=== PATIENT | female | born 1945 | race Caucasian/White ===

== ENCOUNTER → 2017-02-12 | Outpatient (CLI) | payer MEDICARE, BC ==
--- NOTE | 2017-02-12 07:58 | US ---
EXAMINATION TYPE: US abdomen complete DATE OF EXAM: 02/12/2017 7:40 AM COMPARISON: NONE CLINICAL HISTORY: K21.9 Gerd wo esophagitis, R10.11 RUQ Pain. post rich, general abd pain EXAM MEASUREMENTS: Liver Length: 20.3 cm Gallbladder Wall: surgically absent CBD: 0.6 cm Spleen: 10.8 cm Right Kidney: 11.0 x 4.9 x 5.1 cm Left Kidney: 10.4 x 5.6 x 4.9 cm Pancreas: tail gassed out, 9mm panc cyst at the upper anterior body Liver: hepatomegaly Gallbladder: Surgically absent CBD: wnl Spleen: wnl Right Kidney: wnl Left Kidney: wnl Upper IVC: wnl Abd Aorta: wnl as seen, some limitations due to overlying bowel gas There is a 9 mm cystic mass involving the body of the pancreas. The liver is enlarged measuring 20.3 cm. The gallbladder has been removed. IMPRESSION: 1. HEPATOMEGALY. 2. CYSTIC LESION WITHIN THE BODY OF THE PANCREAS WARRANTS FURTHER INVESTIGATION. A HIGH-RESOLUTION CT SCAN THROUGH THE PANCREAS WOULD BE SUGGESTED.
== END | disposition home or self-care (01) ==
LOC: RADUSWWP 07:19
PROVIDERS: ATTEND Family Medicine
DX: R16.1 Splenomegaly, not elsewhere classified (principal); K86.89 Other specified diseases of pancreas; K21.9 Gastro-esophageal reflux disease without esophagitis
CPT/HCPCS: 76700

== ENCOUNTER → 2017-02-28 | Outpatient (CLI) | payer MEDICARE, BC ==
[2017-02-28 16:56] LABS: Blood Urea Nitrogen 18 mg/dL (7-17); Non-African American GFR(MDRD) >60 (>60 ml/min/1.73 sqM)
--- NOTE | 2017-03-01 17:12 | CT ---
EXAMINATION TYPE: CT abdomen w con DATE OF EXAM: 02/28/2017 5:21 PM COMPARISON: Ultrasound 02/12/2017 INDICATION: Mid to right upper quadrant pain. DLP: 958.30 mGycm, Automated exposure control for dose reduction was used. CONTRAST: 100 mL of Omnipaque 300. Study performed with Oral Contrast TECHNIQUE: Axial images were obtained from above the diaphragm to the pubic rami in the axial plane a t 5 mm thick sections. Reconstructed images are reviewed on the computer in the coronal plane. FINDINGS: Limited CT sections are obtained the lung bases. The lung bases are clear. CT ABDOMEN: Liver: Normal Spleen: Normal Pancreas: Appears mildly atrophic. There is a 1.3 cm hypodensity in the anterior tail of the pancreas . This measures 8 Hounsfield units and could be a pancreatic cyst. Cystadenoma or cystadenocarcinoma within the differential. Monitoring is recommended. There is a second hypodensity measuring 1.1 cm an d 3 Hounsfield units on the anterior body of the pancreas. Adrenal glands: The adrenal glands are normal. Gallbladder: Normal Kidneys: No masses are evident. No hydronephrosis is present. No cysts are present. Delayed images were obtained through the kidneys, which remain unremarkable. Aorta: Vascular calcification is within the aorta. Inferior vena cava: Normal. Loops of bowel within the abdomen are normal. Appendix: Normal as visualized. IMPRESSIONS: 1. Two hypodensities within the pancreas, the anterior body and anterior tail which appear cystic on the CT examination. These are better visualized on CT than on comparison ultrasound. Cyst, cystadeno ma, cystadenocarcinoma within the differential. Monitoring CT is recommended. Follow-up CT abdomen in 3 months, pancreas protocol with contrast.
== END | disposition home or self-care (01) ==
LOC: RADCTMAIN 16:14
PROVIDERS: ATTEND Family Medicine
DX: K86.89 Other specified diseases of pancreas (principal)
CPT/HCPCS: 82565; 84520; 74160; 36415; Q9967

== ENCOUNTER → 2017-07-16 | Outpatient (CLI) | payer MEDICARE, BC ==
--- NOTE | 2017-07-16 09:57 | XR ---
EXAMINATION TYPE: XR forearm LT DATE OF EXAM: 07/16/2017 COMPARISON: NONE HISTORY: Pain and swelling, fall last week TECHNIQUE: 2 view left forearm FINDINGS: No acute fractures are evident. Soft tissues appear normal. Joint spaces as visualized appe ar unremarkable. Note is made of some mild ulnar negative variance. IMPRESSION: 1. No acute or subacute osseous abnormality.
--- NOTE | 2017-07-16 09:58 | XR ---
EXAMINATION TYPE: XR hand complete LT DATE OF EXAM: 07/16/2017 COMPARISON: NONE HISTORY: Fall one week prior, swelling TECHNIQUE: Three-view left hand FINDINGS: There is mild joint space narrowing of the proximal interphalangeal joint spaces and distal interphalangeal joint spaces. No acute fractures evident. Soft tissues appear normal. IMPRESSION: 1. Mild degenerative joint changes. 2. No acute osseous abnormality.
== END | disposition home or self-care (01) ==
LOC: RADXRYALE 09:28
PROVIDERS: ATTEND Physician Assistant Medical
DX: M25.842 Other specified joint disorders, left hand (principal); M79.642 Pain in left hand; M79.632 Pain in left forearm; M25.532 Pain in left wrist

== ENCOUNTER → 2018-11-11 | Outpatient (CLI) | payer MEDICARE, BC ==
[2018-11-11 13:11] LABS: Blood Urea Nitrogen 16 mg/dL (7-17)
--- NOTE | 2018-11-12 06:51 | CT ---
EXAMINATION TYPE: CT abdomen w con DATE OF EXAM: 11/11/2018 COMPARISON: 02/28/2017 HISTORY: 73-year-old female abnormal findings of diagnostic imaging, cyst of pancreas TECHNIQUE: Contiguous axial scanning of the abdomen following administration of 100 ml Isovue 300 IV contrast. Delayed images through the kidneys and coronal/sagittal reconstructions performed. CT DLP: 1001.60 mGycm Automated exposure control for dose reduction was used. FINDINGS: Heart borderline enlarged without pericardial effusion. Some strandy areas of atelectasis and scarrin g noted in the lower lungs. No pleural effusion. Small hiatal hernia. The liver is enlarged measuring 22.4 cm craniocaudal. Possibly secondary to a prominent Brayan's lobe . No focal liver lesion or biliary ductal dilatation. Portal venous system is patent. Cholecystectomy clips. Adrenal glands, spleen within normal limits. There is delayed excretion of contrast from both kidneys . Correlate with patient's renal function. 2 cystic lesions within the pancreas, one along the anterior pancreatic body and one along the anteri or pancreatic tail measuring 9 mm and 1.2 cm, respectively are not significantly changed. These are e ssentially stable in size over the course of 1 year and 8 months. No mesenteric or retroperitoneal lymphadenopathy. No dilated small bowel, free fluid, or free air. Ti ny fatty umbilical hernia. Scattered mild stool burden and scattered colonic diverticulosis. No peric olonic inflammatory change within the visualized portions. The pelvis is not imaged. Bones: Degenerative changes mid to lower lumbar spine with grade 1 anterolisthesis at L4-L5 and bilat eral neuroforaminal narrowing at this level. IMPRESSION: 1. 2 CYSTIC LESIONS WITHIN THE PANCREAS MEASURE UP TO 1.2 CM AND ARE ESSENTIALLY STABLE FOR 1 YEAR AN D 8 MONTHS. BASED ON CONSENSUS GUIDELINES, A BENIGN ENTITY IS SUGGESTED AND NO FURTHER FOLLOW-UP WOUL D BE RECOMMENDED. 2. NO CONTRAST SEEN WITHIN THE RENAL COLLECTING SYSTEMS ON THE DELAYED KIDNEY IMAGES. UNABLE TO EXCLU DE DELAYED RENAL EXCRETION. CORRELATE WITH PATIENT'S RENAL FUNCTION TO EXCLUDE ELISA. 3. SMALL HIATAL HERNIA. THERE MAY BE UNDERLYING HEPATIC STEATOSIS. CLINICALLY CORRELATE. SCATTERED CO LONIC DIVERTICULOSIS.
== END | disposition home or self-care (01) ==
LOC: RADCTMAIN 12:29
PROVIDERS: ATTEND Family Medicine
DX: K86.2 Cyst of pancreas (principal); K44.9 Diaphragmatic hernia without obstruction or gangrene; K57.30 Diverticulosis of large intestine without perforation or abscess without bleeding; K58.0 Irritable bowel syndrome with diarrhea; K21.9 Gastro-esophageal reflux disease without esophagitis
CPT/HCPCS: 82565; 84520; 74160; 36415; Q9967

== ENCOUNTER → 2019-01-09 | Outpatient (CLI) | payer MEDICARE, BC ==
--- NOTE | 2019-01-09 10:28 | XR ---
EXAMINATION TYPE: XR chest 2V DATE OF EXAM: 01/09/2019 COMPARISON: 11/05/2016 HISTORY: Shortness of breath TECHNIQUE: Frontal and lateral views of the chest are obtained. FINDINGS: Scattered senescent parenchymal changes noted. Hyperinflation compatible with COPD. Increased density right medial lung base may reflect underlying pneumonia. Correlate clinically and c onsider progress studies. Heart size is stable. Mediastinal structures are stable and grossly unremarkable. No evidence for hilar prominence. Degenerative changes dorsal spine. IMPRESSION: 1. Increased density right medial lung base may reflect underlying pneumonia. Correlate clinically an d consider progress studies.
== END | disposition home or self-care (01) ==
LOC: RADXRYALE 09:40
PROVIDERS: ATTEND Family Medicine
DX: J98.4 Other disorders of lung (principal)
CPT/HCPCS: 71046

== ENCOUNTER → 2019-10-30 | Outpatient (CLI) | payer MEDICARE, BC ==
--- NOTE | 2019-10-30 12:25 | XR ---
EXAMINATION TYPE: XR chest 2V DATE OF EXAM: 10/30/2019 COMPARISON: Prior chest x-ray 01/09/2019 HISTORY: Bronchopneumonia, cough and dyspnea TECHNIQUE: Frontal and lateral views of the chest are obtained. FINDINGS: There are prominent lung volumes with relative flattening the hemidiaphragms noted on the l ateral exam. Eventration is noted on the frontal exam the right hemidiaphragm. Aorta is dense. Promin ence of pulmonary artery could be indicative of pulmonary artery hypertension. There is bronchial wal l thickening. There is no focal air space opacity, pleural effusion, or pneumothorax seen. The cardi ac silhouette size is within normal limits. The osseous structures are intact. IMPRESSION: Correlate for bronchitis, reactive airways disease, additional findings above
== END | disposition home or self-care (01) ==
LOC: RADXRYALE 10:01
PROVIDERS: ATTEND Family Medicine
DX: J98.4 Other disorders of lung (principal); Q79.1 Other congenital malformations of diaphragm
CPT/HCPCS: 71046

== ENCOUNTER → 2020-01-30 | Outpatient (CLI) | payer MEDICARE, BC ==
--- NOTE | 2020-01-30 10:26 | MR ---
EXAMINATION TYPE: MR brain and iac wo/w con DATE OF EXAM: 01/30/2020 COMPARISON: None HISTORY: Tinnitus TECHNIQUE: Multiplanar, multisequence images of the brain and brainstem is performed without and with IV contras t, utilizing 9 mL intravenous Gadavist . FINDINGS: Diffusion weighted images demonstrate no evidence of a recent infarct or other diffusion ab normality. There is no evidence of enhancing mass or mass effect. Mild generalized degenerative change seen with the numerous focal areas of abnormal signal scattered throughout the white matter in a nonspecific p attern but most typical remote microvascular ischemia. There is no evidence of cerebellopontine angle mass or acoustic schwannoma. Oropharynx and nasopharyn x symmetric. Changes of chronic sinusitis are noted. Mastoid air cells appear clear. Midline structures demonstrate normal morphology. The craniocervical junction appears within normal limits. Post contrast images demonstrate no abnormal enhancement. The dural venous sinuses appear pa tent. IMPRESSION: 1. Degenerative and nonspecific white matter changes most typical remote microvascular ischemia. 2. No evidence of acoustic schwannoma or cerebellopontine angle mass. 3. Changes of chronic sinusitis most marked involving the right maxillary sinus.
== END | disposition home or self-care (01) ==
LOC: RADMRIMAIN 08:56
PROVIDERS: ATTEND Otolaryngology
DX: G31.9 Degenerative disease of nervous system, unspecified (principal); R90.89 Other abnormal findings on diagnostic imaging of central nervous system; H93.3X1 Disorders of right acoustic nerve; H91.91 Unspecified hearing loss, right ear; H93.19 Tinnitus, unspecified ear
CPT/HCPCS: 70553; A9585

== ENCOUNTER → 2021-02-25 | Outpatient (CLI) | payer MEDICARE, BC ==
--- NOTE | 2021-02-25 11:03 | XR ---
EXAMINATION TYPE: XR cervical spine comp DATE OF EXAM: 02/25/2021 COMPARISON: None HISTORY: Cervicalgia TECHNIQUE: 5 view cervical spine FINDINGS: Odontoid is very limited due to overlying maxilla. Prevertebral space is normal. Disc space narrowing is present at C5-C6 C6-7. Posterior spinal lamellar line is intact. Mild foraminal narrowi ng at C6-7 on the left is present. C5-6 left foraminal narrowing is present. Remaining foramen are pa tent. Facet hypertrophy is noted. IMPRESSION: 1. Degenerative facet changes. 2. Degenerative disc changes C5-C6 C6-7. 3.There is some foraminal narrowing at C5-C6 and C6-7 on the left.
== END | disposition home or self-care (01) ==
LOC: RADXRYALE 10:37
PROVIDERS: ATTEND Family Medicine
DX: M47.812 Spondylosis without myelopathy or radiculopathy, cervical region (principal); M50.323 Other cervical disc degeneration at C6-C7 level; M99.71 Connective tissue and disc stenosis of intervertebral foramina of cervical region
CPT/HCPCS: 72050

== ENCOUNTER 2021-10-21 17:12 | Emergency (ER) | payer MEDICARE, BC ==
--- NOTE | 2021-10-21 22:05 | ED ---
General Adult HPI - General Chief complaint: Upper Respiratory Infection Stated complaint: Covid Positive Time Seen by Provider: 10/21/21 21:23 Source: patient, family, RN notes reviewed Mode of arrival: ambulatory Limitations: no limitations - History of Present Illness Initial comments: 75-year-old female presents to the emergency department for evaluation of shortness of breath with activity and cough. Patient states she tested positive for Covid today; symptoms began on Sunday. Patient states her PCP prescribed her an antibiotic because of her chest congestion and predisposition toward developing pneumonia. States her chest, back, and neck are sore and has generalized body aches. Patient states she has not had a fever, chills, chest p ain, abdominal pain, nausea, vomiting, diarrhea, hematuria, or dysuria. - Related Data Home Medications Medication Instructions Recorded Confirmed Calcium Carbonate/Vitamin D3 2 tab PO BID 11/05/16 10/21/21 [Calcium 500-Vit D3 15 Mcg (600 Iu)] Cholecalciferol [Vitamin D3 (25 25 mcg PO DAILY 11/05/16 10/21/21 Mcg = 1000 Iu)] L.acidoph,Paracasei, B.lactis 1 cap PO DAILY 11/05/16 10/21/21 [Probiotic] Montelukast [Singulair] 10 mg PO HS PRN 11/05/16 10/21/21 Cefuroxime Axetil [Ceftin] 500 mg PO BID 10/21/21 10/21/21 Citalopram Hydrobromide [CeleXA] 20 mg PO DAILY 10/21/21 10/21/21 Famotidine 20 mg PO DAILY PRN 10/21/21 10/21/21 Fexofenadine HCl [Marci Allergy] 180 mg PO DAILY PRN 10/21/21 10/21/21 Losartan [Cozaar] 25 mg PO DAILY 10/21/21 10/21/21 Meloxicam [Mobic] 7.5 mg PO DAILY 10/21/21 10/21/21 [place]-3 Fatty Acids/Fish Oil [Fish 1 cap PO BID 10/21/21 10/21/21 Oil 1,000 mg Softgel] Thiamine [Vitamin B-1] 50 mg PO MOWEFR 10/21/21 10/21/21 Allergies Allergy/AdvReac Type Severity Reaction Status Date / Time amoxicillin [From Augmentin] Allergy Rash/Hives Verified 10/21/21 23:07 clarithromycin Allergy Rash/Hives Verified 10/21/21 23:07 clavulanic acid Allergy Rash/Hives Verified 10/21/21 23:07 [From Augmentin] prednisone Allergy Unknown Verified 10/21/21 23:07 Sulfa (Sulfonamide Allergy Unknown Verified 10/21/21 23:07 Antibiotics) Review of Systems ROS Statement: Those systems with pertinent positive or pertinent negative responses have been documented in the HPI. ROS Other: All systems not noted in ROS Statement are negative. Past Medical History Past Medical History: Osteoarthritis (OA) Additional Past Medical History / Comment(s): hiatal hernia, IBS, back pain History of Any Multi-Drug Resistant Organisms: None Reported Past Surgical History: Cholecystectomy, Orthopedic Surgery, Tonsillectomy Additional Past Surgical History / Comment(s): left knee arthroscopy Past Psychological History: No Psychological Hx Reported Smoking Status: Never smoker Past Alcohol Use History: None Reported Past Drug Use History: None Reported - Past Family History Mother Family Medical History: Myocardial Infarction ([place]) General Exam Limitations: no limitations (Well-developed, well-nourished female in no acute distress. Initial temperature 98.5, pulse 76, respirations 18, blood pressure 162/90, pulse ox 95% on room air.) General appearance: alert, in no apparent distress ENT exam: Present: normal exam, normal oropharynx, mucous membranes moist Respiratory exam: Present: normal lung sounds bilaterally. Absent: respiratory distress, wheezes, rales, rhonchi, stridor Cardiovascular Exam: Present: regular rate, normal rhythm, normal heart sounds. Absent: systolic murmur, diastolic murmur, rubs, gallop, clicks GI/Abdominal exam: Present: soft, normal bowel sounds. Absent: distended, tenderness, guarding, rebound, rigid Neurological exam: Present: alert, oriented X3, CN II-XII intact Psychiatric exam: Present: normal affect, normal mood Skin exam: Present: warm, dry, intact, normal color. Absent: rash Course Vital Signs 10/21/21 10/21/21 17:42 23:58 Temperature 98.5 F Pulse Rate 76 86 Respiratory 18 16 Rate Blood Pressure 162/90 172/100 O2 Sat by Pulse 95 97 Oximetry Medical Decision Making - Medical Decision Making This is a 75-year-old female who presents to the emergency department for evaluation of shortness of breath. Patient is Covid positive; she was diagnosed today, symptoms began 2 days ago. Upon exam, patient is well-appearing. She is afebrile, not tachycardic nor tachypneic. SpO2 is 95-100% on room air. Lung sounds clear to auscultation. Patient does report shortness of breath with activity and states she has been using her home nebulizer treatment successfully. Patient is currently taking an antibiotic prescribed by her PCP. Chest x-ray was obtained and shows no acute process. Laboratory studies were obtained and are unremarkable. Risks and benefits of monoclonal antibody infusion were discussed with patient at length. Questions answered, she verbalizes understanding and is agreeable to infusion. Patient tolerated infusion without issue. She will be discharged home to follow up with her primary care provider for recheck. Return parameters were discussed in detail. Patient verbalizes understanding and agrees with this plan. Care was discussed with my attending Dr. Madrigal. - Lab Data Result diagrams: 10/21/21 22:49 10/21/21 22:49 Lab Results 10/21/21 10/21/21 Range/Units 22:49 22:49 WBC 5.6 (3.8-10.6) k/uL RBC 4.75 (3.80-5.40) m/uL Hgb 14.5 (11.4-16.0) gm/dL Hct 42.4 (34.0-46.0) % MCV 89.3 (80.0-100.0) fL MCH 30.5 (25.0-35.0) pg MCHC 34.1 (31.0-37.0) g/dL RDW 12.8 (11.5-15.5) % Plt Count 205 (150-450) k/uL MPV 7.7 Neutrophils % 59 % Lymphocytes % 27 % Monocytes % 6 % Eosinophils % 5 % Basophils % 1 % Neutrophils # 3.3 (1.3-7.7) k/uL Lymphocytes # 1.6 (1.0-4.8) k/uL Monocytes # 0.4 (0-1.0) k/uL Eosinophils # 0.3 (0-0.7) k/uL Basophils # 0.0 (0-0.2) k/uL Sodium 137 (137-145) mmol/L Potassium 4.2 (3.5-5.1) mmol/L Chloride 103 (98-107) mmol/L Carbon Dioxide 23 (22-30) mmol/L Anion Gap 11 mmol/L BUN 15 (7-17) mg/dL Creatinine 0.71 (0.52-1.04) mg/dL Est GFR (CKD-EPI)AfAm >90 (>60 ml/min/1.73 sqM) Est GFR (CKD-EPI)NonAf 84 (>60 ml/min/1.73 sqM) Glucose 106 H (74-99) mg/dL Calcium 9.3 (8.4-10.2) mg/dL Total Bilirubin 0.8 (0.2-1.3) mg/dL AST 81 H (14-36) U/L ALT 70 H (4-34) U/L Alkaline Phosphatase 59 (38-126) U/L Total Protein 7.3 (6.3-8.2) g/dL Albumin 4.3 (3.5-5.0) g/dL - EKG Data EKG shows normal: sinus rhythm Rate: normal EKG Comments: EKG obtained at 1808 and shows normal sinus rhythm. Ventricular rate 74, NM interval 154, QRS duration 86, QT/QTc 412/457. - Radiology Data Radiology results: report reviewed, image reviewed Two-view chest x-ray was obtained. Report was reviewed in its entirety. Impression per Dr. Bolden is no cardiopulmonary disease. No change. Disposition Clinical Impression: COVID-19 Disposition: HOME SELF-CARE Condition: Stable Instructions (If sedation given, give patient instructions): Coronavirus Disease 2019 (COVID-19) Additional Instructions: You should quarantine for 10 days from symptom onset. May take Tylenol or Motrin as needed for fever or discomfort. Continue using your nebulizer. Follow up with your primary care provider for a recheck via video visit or telephone. Return to the emergency department with any new, worsening, or concerning symptoms. Is patient prescribed a controlled substance at d/c from ED?: No Referrals: Benjie Rojas DO [Primary Care Provider] - 1-2 days Time of Disposition: 00:16
--- NOTE | 2021-10-21 22:33 | XR ---
EXAMINATION TYPE: XR chest 2V DATE OF EXAM: 10/21/2021 COMPARISON: 10/30/2019 HISTORY: Cough TECHNIQUE: FINDINGS: Heart and mediastinum are normal. Lungs are clear. Diaphragm is normal. Bony thorax appears intact. IMPRESSION: No cardiopulmonary disease. No change.
[2021-10-21] MEDS ORDERED: SODIUM CHLORIDE 0.9% 50 ML IVPB ONE (23:00)
[2021-10-21] MEDS ORDERED: SOTROVIMAB (EUA) 500 MG in SODIUM CHLORIDE 0.9% 100 ML IVPB ONE (23:00)
[2021-10-21 23:03] LABS: Basophils % (A) 1 %; Eosinophils # (A) 0.3 k/uL (0-0.7); Eosinophils % (A) 5 %; HCT 42.4 % (34.0-46.0); HGB 14.5 gm/dL (11.4-16.0); Lymphocytes # (A) 1.6 k/uL (1.0-4.8); Lymphocytes % (A) 27 %; MCH 30.5 pg (25.0-35.0); MCHC 34.1 g/dL (31.0-37.0); MCV 89.3 fL (80.0-100.0); Mean Platelet Volume 7.7; Monocytes # (A) 0.4 k/uL (0-1.0); Monocytes % (A) 6 %; Neutrophils # (A) 3.3 k/uL (1.3-7.7); Neutrophils % (A) 59 %; Platelet Count 205 k/uL (150-450); RBC 4.75 m/uL (3.80-5.40); RDW 12.8 % (11.5-15.5); WBC 5.6 k/uL (3.8-10.6)
[2021-10-21 23:13] LABS: ALT 70 U/L (4-34); AST 81 U/L (14-36); African American GFR (CKD) >90 (>60 ml/min/1.73 sqM); Albumin 4.3 g/dL (3.5-5.0); Alkaline Phosphatase 59 U/L (38-126); Anion Gap 11 mmol/L; Blood Urea Nitrogen 15 mg/dL (7-17); Calcium 9.3 mg/dL (8.4-10.2); Carbon Dioxide 23 mmol/L (22-30); Chloride 103 mmol/L (98-107); Glucose 106 mg/dL (74-99); Non-African American GFR(CKD) 84 (>60 ml/min/1.73 sqM); Potassium 4.2 mmol/L (3.5-5.1); Sodium 137 mmol/L (137-145); Total Bilirubin 0.8 mg/dL (0.2-1.3); Total Protein 7.3 g/dL (6.3-8.2)
[2021-10-22 00:59] VITALS: BP 159/93; PULSE 84; RESP 18; TEMP 98.4
== END 2021-10-22 00:59 | disposition home or self-care (01) ==
LOC: EC 17:12
DX: U07.1 COVID-19 (principal); M19.90 Unspecified osteoarthritis, unspecified site; Z88.0 Allergy status to penicillin; Z88.1 Allergy status to other antibiotic agents; Z88.8 Allergy status to other drugs, medicaments and biological substances; Z88.2 Allergy status to sulfonamides; Z79.899 Other long term (current) drug therapy
CPT/HCPCS: 36415; 80053; 85025; 71046; 99285; Q0247

== ENCOUNTER → 2022-05-23 | Outpatient (CLI) | payer MEDICARE, BC ==
--- NOTE | 2022-05-23 17:33 | US ---
EXAMINATION TYPE: US pelvic complete DATE OF EXAM: 05/23/2022 COMPARISON: NONE CLINICAL HISTORY: 76-year-old female N95.0 Post menopausal bleeding, R10.2 Pelvic Pain, N816 Recto. P ostmenopausal spotting 1 month ago TECHNIQUE: Transabdominal sonographic images of the pelvis were acquired. Date of LMP: 20+ years ago FINDINGS: EXAM MEASUREMENTS: Uterus: 8.3 x 2.7 x 4.2 cm Endometrial Stripe: 0.7 cm Right Ovary: 2.2 x 1.5 x 2.2 cm Left Ovary: 2.7 x 1.6 x 1.6 cm 1. Uterus: anteverted 2. Endometrium: Mildly thickened. 3. Right Ovary: wnl 4. Left Ovary: wnl 5. Bilateral Adnexa: wnl 6. Posterior cul-de-sac: wnl IMPRESSION: Endometrial stripe measuring 7 mm. This is mildly thickened for a postmenopausal female with vaginal bleeding. Differential considerations include endometrial polyps, hyperplasia, or carcinoma. Further evaluation by WEBSITE ADMIN can be considered.
== END | disposition home or self-care (01) ==
LOC: RADUSWWP 14:47
PROVIDERS: ATTEND Family Medicine
DX: N95.0 Postmenopausal bleeding (principal); R10.2 Pelvic and perineal pain; N81.6 Rectocele
CPT/HCPCS: 76856

== ENCOUNTER → 2023-02-01 | Outpatient (CLI) | payer MEDICARE, BC ==
--- NOTE | 2023-02-01 13:02 | MR ---
EXAMINATION TYPE: MR lumbar spine wo con DATE OF EXAM: 02/01/2023 8:52 AM COMPARISON: CT 11/12/2018. CLINICAL INDICATION:Female, 77 years old with history of M54.50 M51.36; PHH, Chronic lower back pain, radiates down left leg. TECHNIQUE: Multi planar, multi sequence imaging was performed utilizing: T1-weighted, T2-weighted, a nd turbo inversion recovery imaging of the lumbar spine. IV Contrast: None. FINDINGS: Alignment: The lumbar vertebral bodies have preserved heights with grade 1 anterolisthesis of L4 on L 5. Cord: The conus medullaris and the distal spinal cord appear unremarkable with regards to their signa l intensity and morphology. Bones/Discs: Scattered Modic endplate changes most pronounced at L4-L5 and L5-S1. Mild reactive bony edema along the adjoining endplates of L5-S1.. Multilevel degenerative disc disease is noted and most pronounced at the L4-L5 and L5-S1 with good 1 anterolisthesis, osteophytes, disc space narrowing and Modic endplate changes. Multilevel disc desiccation is present. T12-L1: Disc bulge and facet joint arthropathy without significant spinal canal stenosis and mild [place] ateral neural foraminal stenosis. L1-L2: Disc bulge and facet joint arthropathy without significant spinal canal stenosis and mild bila teral neural foraminal stenosis. L2-L3: Disc bulge and facet joint arthropathy result in mild spinal canal and mild bilateral neural f oraminal stenosis. L3-L4: Disc bulge and facet joint arthropathy result in mild spinal canal and mild right and moderate left mild bilateral neural foraminal stenosis. L4-L5: Disc uncovering from grade 1 anterolisthesis and facet joint arthropathy with moderate to yesica re spinal canal stenosis and moderate to severe bilateral neural foraminal stenosis. L5-S1: The disc is rounded posterior morphology without significant spinal canal stenosis. Facet join t arthropathy with moderate bilateral neural foraminal stenosis. Osteophytes are felt to impress upon the exiting nerves. Other findings: None. IMPRESSION: 1. Grade 1 anterolisthesis of L4 and L5 with moderate to severe spinal canal and moderate to severe bilateral neural foraminal stenosis. Additional multilevel disc degeneration changes with scattered n eural foraminal stenosis which is mild and moderate in severity. Suspected source of radiculopathy at L4-L5 or L5-S1. Correlate with symptoms/dermatome. 2. No disc herniation visualized.
== END | disposition home or self-care (01) ==
LOC: RADMRIMAIN 07:58
PROVIDERS: ATTEND Family Medicine
DX: M51.16 Intervertebral disc disorders with radiculopathy, lumbar region (principal); M43.16 Spondylolisthesis, lumbar region; M48.061 Spinal stenosis, lumbar region without neurogenic claudication; M99.73 Connective tissue and disc stenosis of intervertebral foramina of lumbar region; G89.29 Other chronic pain
CPT/HCPCS: 72148

== ENCOUNTER → 2024-09-24 | Outpatient (CLI) | payer MEDICARE, BC ==
--- NOTE | 2024-09-24 19:45 | BD ---
EXAMINATION TYPE: Axial Bone Density DATE OF EXAM: 09/24/2024 CLINICAL HISTORY: 78 years old Female. ICD-10 CODE: M85.89; M81.0 OSTEO , Additional History: Height: 5 ft 4 1/2 in Weight: 206 FRAX RISK QUESTIONS: Alcohol (3 or more units per day): no Family History (Parent hip fracture): yes Glucocorticoids (More than 3mos): no (Ex: prednisone, prednisolone, methylprednisolone, dexamethasone, and hydrocortisone). History of Fracture in Adulthood: no Secondary Osteoporosis: 1. Type 1 Diabetes: no 2. Hyperthyroidism: no 3. Menopause before 45: no 4. Malnutrition: no 5. Chronic liver disease: no Rheumatoid Arthritis: no Current Tobacco Use: no RISK FACTORS HISTORY OF: Surgery to Spine/Hip(right/left)/Wrist (right/left): no MEDICATIONS: Thyroid Medications: none Osteoporosis Medications: none EXAM MEASUREMENTS: Bone mineral densitometry was performed using the [employer] System. Bone mineral density as measured about the Lumbar spine is: ----- L1-L4(G/cm2): 1.449 T Score Values are as follows: ----- L1: 0.8 ----- L2: 1.6 ----- L3: 2.5 ----- L4: 3.4 ----- L1-L4: 2.2 Z Score Values are as follows: ----- L1: 1.6 ----- L2: 2.5 ----- L3: 3.4 ----- L4: 4.2 ----- L1-L4: 3.1 Bone mineral density has: increased 9.9 % since study of: 2013 Bone mineral density about the R hip (g/cm2): 0.857 Bone mineral density about the L hip (g/cm2): 0.901 T Score values are as follows: -----R Neck: -1.3 -----L Neck: -1.0 -----R Total: -0.4 -----L Total: -0.1 Z Score values are as follows: -----R Neck: 0.2 -----L Neck: 0.5 -----R Total: 0.9 -----L Total: 1.1 Bone mineral density has: decreased -2.5 % since study of: 2013 FRAX%s: The graph provided illustrates a 11.4 % chance for a major osteoporotic fx and a 2% chance fo r the hips probability for fx in 10 years time. IMPRESSION: Normal (Values between +1 and -1 indicate normal bone mass). Consider repeating this study in 5 year s or sooner if there is some new clinical indication. NOTE: T-SCORE=SD OF THE YOUNG ADULT MEAN. [facility], , 09/24/2024 7:43 PM
--- NOTE | 2024-09-29 13:29 | MM ---
Reason for Exam: Screening (asymptomatic). Last mammogram was performed 8 year(s) and 8 month(s) ago. Patient History: Menarche at age 12. First Full-Term at age 23. Postmenopausal. 1988, Benign Excisional Biopsy on the left side. 02/16/1998, Benign Core Biopsy on the right side. Risk Values: Neeta 5 year model risk: 2.3%. NCI Lifetime model risk: 4.1%. Prior Study Comparison: 01/25/2009 Bilateral Screening Mammogram, [facility]. 05/18/2014 Bilateral Screening Mammogram, [facility]. 01/26/2016 Bilateral Screening Mammogram, [facility]. Tissue Density: The breasts are heterogeneously dense, which may obscure small masses. Findings: Analyzed By CAD. Right breast: There is no suspicious group of microcalcifications or new suspicious mass. Left breast: There is no suspicious group of microcalcifications or new suspicious mass. Overall Assessment: Negative, BI-RAD 1 Management: Screening Mammogram of both breasts in [address] [facility] will attempt to contact patient to return for supplemental views and ultrasound if indicated. Patient should continue monthly self-breast exams. A clinical breast exam by your physician is recommended on an annual basis. This exam should not preclude additional follow-up of suspicious palpable abnormalities. Note on Neeta scores and lifetime risk: 1. A Neeta score greater than 3% is considered moderate risk. If this is the case, consider specialist referral to assess eligibility for a risk reducing agent. 2. If overall lifetime risk for the development of breast cancer is 20% or higher, the patient may qualify for future screening with alternating mammogram and breast MRI. [facility], , 09/29/2024 1:27 PM. Electronically signed and approved by: Eze Persaud DO
== END | disposition home or self-care (01) ==
LOC: RADMAMWWP 13:54
PROVIDERS: ATTEND Family Medicine
DX: Z12.31 Encounter for screening mammogram for malignant neoplasm of breast (principal); Z78.0 Asymptomatic menopausal state; R92.333 Mammographic heterogeneous density, bilateral breasts; M85.89 Other specified disorders of bone density and structure, multiple sites; M81.0 Age-related osteoporosis without current pathological fracture
CPT/HCPCS: 77063; 77067; 77080